=== PATIENT | male | born 1965 | race Caucasian/White ===

== ENCOUNTER 2016-05-08 08:07 | Emergency (ER) | payer OTHER ==
[~2016-05-08] VITALS: Wt 100.0 kg
[2016-05-08] MEDS ORDERED: ALBUTEROL 0.083% (NEB) 2.5 MG/3 ML AMP HHN ONE (09:30)
[2016-05-08] MEDS ORDERED: IPRATROPIUM (NEB) 0.5 MG/2.5 ML AMP HHN ONE (09:30)
--- NOTE | 2016-05-08 09:37 | RADRPT ---
PROCEDURE: XR Chest. CLINICAL INDICATION: Chest pain. TECHNIQUE: Single frontal view of the chest was obtained COMPARISON: No. FINDINGS: The soft tissues are normal. The bony elements are normal. The heart, left side aorta, cardiomedias tinal silhouette, pulmonary vasculature and hilar structures are normal. The costophrenic angles ar e normal. There is a suboptimal inspiratory effort with some compressive atelectasis in the bases of the lungs. There is slight increased density in the left lower lobe. A lateral view is recommended to exclude infiltrate in this area. IMPRESSION: 1. Possible early left lower lobe infiltrate. A lateral view is recommended. RPTAT:AAJJ Physician Poornima Date Time Electronically viewed and signed by Physician Poornima on 05/08/2016 09:37 SE/
--- NOTE | 2016-05-08 10:29 | RADRPT ---
PROCEDURE: CHEST 1VW CLINICAL INDICATION: Possible left lower lobe infiltrate TECHNIQUE: Single lateral view of the chest was obtained COMPARISON: 05/08/2016 FINDINGS: The cardiac size is normal. Aortic vascular calcifications are demonstrated. There is no pulmonary vascular congestion. The lungs are clear. No consolidation, effusion, or pneumothorax. Mild degenerative changes of the visualized osseous structures are visualized. IMPRESSION: 1. No acute cardiopulmonary process. No obvious left lower lobe infiltrate. 2. Atherosclerosis. RPTAT:PP .Rahul Mabry MD, Date Time Electronically viewed and signed by .Rahul Mabry MD, on 05/08/2016 10:29 .V/
[2016-05-08] MEDS ORDERED: D-ME473S18 PO (11:06)
[2016-05-08] MEDS ORDERED: ALBU8.5H3 INH (11:06)
[2016-05-08] MEDS ORDERED: DOXY100T20 PO (11:06)
[2016-05-08] MEDS ORDERED: PRED20TA PO (11:06)
[2016-05-08 11:25] VITALS: BP 121/75; PULSE 72; RESP 20; TEMP 98.2
--- NOTE | 2016-05-08 21:49 | ERD ---
DATE OF SERVICE: HISTORY OF PRESENT ILLNESS: Patient is a 51-year-old male complaining of cough and congestion with mild shortness of breath for 6 days. Patient states he has had tactile fevers at home. He has had a sore throat. He denies any hemoptysis. No leg swelling. Occasional shortness of breath. No his tory of pneumonia or asthma in the past. He has positive sick contacts at home. He did take Tyleno l this morning prior to evaluation. PAST MEDICAL HISTORY: Hypertension. ALLERGIES TO MEDICATIONS: DENIES. SURGICAL HISTORY: Hernia repair. SOCIAL HISTORY: Smokes occasionally. REVIEW OF SYSTEMS: A 12-point review of systems was done. Refer to HPI for positives. All other s ystems negative. PHYSICAL EXAMINATION VITAL SIGNS: Temperature is 97.9, pulse is 64, blood pressure is 155/84, respiratory rate 20, O2 sa turation 99% on room air. Pain intensity 9/10. GENERAL: The patient is well-appearing, well-nourished, no acute distress. HEENT: Atraumatic. Conjunctivae are pink. Pupils equal, no scleral icterus. Tympanic membranes c lear bilaterally. Oropharynx clear. No nystagmus or photophobia. LUNGS: Insert normal. HEART: Insert normal. ABDOMEN: Insert normal. SKIN: Insert normal. EMERGENCY ROOM COURSE: The patient had an EKG done in the ER. EKG showed normal sinus rhythm with a ventral rate of 68 beats per minute, no ST elevations, no T-wave inversions, no QT prolongations, possible anterior infarct. Reviewed and signed off by Dr. Grant. Patient also had a 1-view ches t x-ray done in the ER; 1-view chest x-ray showed possible early left lower lobe infiltrate; lateral recommended. Lateral x-ray was obtained and showed: 1. No acute cardiopulmonary process, no obvious left lower lobe infiltrate. 2. Atherosclerosis. Patient also had a breathing treatment in the ER with albuterol and Atrovent. Upon reevaluation, luis quiros stated his symptoms had improved. DIAGNOSIS: Cough, possible early pneumonia. MEDICAL DECISION MAKING: I have low suspicion for cardiac abnormality as patient's symptoms improve d with a breathing treatment, and he is not complaining of cardiac chest pain. I have low suspicion for PE. The patient's vital signs are stable. Patient does not have hemoptysis or pleuritic chest pain and has low possibility for risk factors. Low suspicion for CHF, COPD. Patient does not have leg swelling and does not have history of COPD in the past. Vitals are stable. The patient will b e treated for possible early pneumonia. DISCHARGE: Patient is discharged stable. Patient given prescription for doxycycline, prednisone, a lbuterol, and Phenergan DM, and told to follow up with primary care within 1 to 2 days for reevaluat ion. The patient was told if symptoms progress or worsen, return to the ER. All their questions we re answered at time of discharge. Discharge summary given at the time of departure. Patient unders tood and complied with plan. Dictated By: EMILY PERALTA for YOLANDA STEVENS/KEYSHAWN Conf#: [id number] DID#: [id number]
== END 2016-05-08 11:25 | disposition home or self-care (01) ==
LOC: FTE 08:07
DX: R05 Cough (principal); F17.210 Nicotine dependence, cigarettes, uncomplicated; I10 Essential (primary) hypertension
CPT/HCPCS: 71010; 94664; Z7502; Z7610

== ENCOUNTER 2017-08-13 14:49 | Emergency (ER) | END 2017-08-13 19:30 | disposition home or self-care (01) ==